=== PATIENT | female | born 1970 | race Hispanic/Latino ===

== ENCOUNTER → 2022-08-11 | Outpatient (CLI) | payer OTHER ==
[2022-08-11 12:52] LABS: CREATININE 0.7 mg/dL (0.5-1.5); POTASSIUM 3.9 mmol/L (3.5-5.1)
== END | disposition home or self-care (01) ==
LOC: LAB 11:46
PROVIDERS: ATTEND Student in an Organized Health Care Education/Training Program
DX: R07.9 Chest pain, unspecified (principal)
CPT/HCPCS: 36415; 80048

== ENCOUNTER → 2022-08-14 | Outpatient (CLI) | payer OTHER ==
[~2022-08-14] MED LIST: IOHEXOL 350 MG/ML 100ML INFUS..BTL IV ONE; METOPROLOL TARTRATE 1 MG/ML 5ML VIAL IV ONE
== END | disposition home or self-care (01) ==
LOC: RAH 07:51 → EDUNIT# 08:00
PROVIDERS: ATTEND Student in an Organized Health Care Education/Training Program
DX: M47.815 Spondylosis without myelopathy or radiculopathy, thoracolumbar region (principal); R07.9 Chest pain, unspecified
CPT/HCPCS: 75574; J3490; Q9967